=== PATIENT | male | born 1965 | race Caucasian/White ===

== ENCOUNTER 2016-09-22 05:35 | Day surgery (SDC) | payer BC ==
[2016-09-22] MEDS ORDERED: Dextrose 5%-0.45% NaCl 1,000 ML IV SCH (06:00)
[2016-09-22] MEDS ORDERED: Sodium Chloride 0.9% 10 ML Syringe FLUSH PRN (06:00)
[2016-09-22] MEDS ORDERED: Midazolam 1 MG/ML 2 ML SDV ONE (06:17)
[2016-09-22] MEDS ORDERED: fentaNYL 100 MCG/2 ML SDV ONE (06:17)
[2016-09-22] MEDS ORDERED: fentaNYL 100 MCG/2 ML SDV IV ONE ×3 (06:31→14:22)
[2016-09-22] MEDS ORDERED: Midazolam 1 MG/ML 2 ML SDV IV ONE ×3 (06:32→14:22)
--- NOTE | 2016-09-22 07:21 | OR ---
DATE: 09/22/2016 PROCEDURES: Esophagogastroduodenoscopy and multiple pinch biopsies. INSTRUMENT USED: GIF-H180 Olympus video panendoscope. PREMEDICATIONS: No oral topical anesthesia used. Fentanyl 100 mcg intravenous, Versed 2 mg intravenous, nasal 2 L O2 cannula. The procedure was done under pulse oximetry, BP recording, and quality assurance monitor. INDICATION: The patient with longstanding heartburn, dyspepsia, and upper abdominal pain had previous esophageal ulcers, treated by PPI in the past few months. Followup esophagogastroduodenoscopy is done for verification of the total healing of esophageal ulcers and for any evidence of Higgins's esophagus and/or malignancy, endoscopic hemostasis therapy if needed. DESCRIPTION OF PROCEDURE: The scope was passed with ease. Adequate visualization of the esophagus was made from proximal to distal areas. No upper esophageal lesions identified. No distal esophageal stricture. No uphill or downhill esophageal varices. No Marjorie-Donovan tear. No evidence of erosive esophagitis by [place] criteria. No esophageal polyp or tumor mass identified. Small sliding hiatal hernia was noted. [employer] columnar epithelium was noted at around 38 cm distal to the oral verge, small squamous island was noted in the area, 4 quadrant biopsies were taken and sent for any histopathologic evidence of intestinal metaplasia. No proximal gastric varices noted. Gastric fundus examination by retroflexion showed no polypoid lesions. No gastric ulcer, polyp, tumor mass, or vascular ectasia identified. Some patchy erythema was noted in the antrum. Duodenal bulb showed no ulcer. Visualized second part of the duodenum was unremarkable. Photographs were taken of the duodenal bulb, gastric antrum, fundus, and distal esophagus. No bleeding was noted from any of the visualized areas at the completion of examination. IMPRESSION: Small sliding hiatal hernia. The patient tolerated the procedure well. [facility] /[id number]
[2016-09-22 08:49] VITALS: BP 134/86
== END 2016-09-22 08:48 | disposition home or self-care (01) ==
LOC: DL.ENDO 05:35 → EDSTATUS 06:30 → DL.ENDO 08:48
PROVIDERS: ATTEND Internal Medicine Gastroenterology
DX: B33.20 Viral carditis, unspecified (principal); K44.9 Diaphragmatic hernia without obstruction or gangrene
CPT/HCPCS: 43239; J2250; J3010; J7042

== ENCOUNTER 2023-07-14 05:44 | Emergency (ER) | payer BC ==
[2023-07-14] MEDS ORDERED: Aspirin 81 MG Tab.Chew PO ONE (05:53)
[2023-07-14 06:02] LABS: BASOPHILS PERCENT AUTO 0.4 % (0.0-1.0); HEMATOCRIT 48.3 % (40.0-54.0); HEMOGLOBIN 17.3 g/dL (14.0-18.0); LYMPHOCYTES PERCENT AUTO 7.6 % (20.5-50.1); MEAN CORPUSCULAR HEMOGLOBIN 31.3 pg (27.0-34.0); MEAN CORPUSCULAR HGB CONC 35.8 g/dL (33.0-35.0); MEAN CORPUSCULAR VOLUME 87.3 fL (80-100); MONOCYTES PERCENT AUTO 3.9 % (2-8); NEUTROPHILS PERCENT AUTO 87.1 % (42.2-75.2); PLATELET COUNT,PLT 222 10^3/uL (150-450); RED BLOOD CELL COUNT 5.53 10^6/uL (4.6-6.2); WHITE BLOOD CELL COUNT,WBC 11.4 10^3/uL (5.0-10.0)
[2023-07-14 06:26] LABS: A/G RATIO 1.4; ALBUMIN 4.3 g/dL (3.4-5.0); ANION GAP 15.5 mEq/L (7-13); BILIRUBIN TOTAL 1.2 mg/dL (0.2-1.0); BUN/CREATININE RATIO 10.3 (No establ ref range); CALCIUM 9.1 mg/dL (8.5-10.1); CREATININE 1.46 mg/dL (0.70-1.30); EST CRCL DRUG DOSING (CG) 53.81 mL/min; MAGNESIUM 1.6 mg/dL (1.8-2.4); POTASSIUM,K 3.5 mmol/L (3.5-5.1); PROTEIN TOTAL,TP 7.4 g/dL (6.4-8.2)
[2023-07-14] MEDS ORDERED: Sodium Chloride 0.9% 1,000 ML IV ONE (06:29)
[2023-07-14 06:47] LABS: CORONAVIRUS COVID-19 NAA NEGATIVE (NEGATIVE); INFLUENZA A NAA NEGATIVE (NEGATIVE); INFLUENZA B NAA NEGATIVE (NEGATIVE)
[2023-07-14] MEDS ORDERED: GI Cocktail Oral Solution 30 ML PO ONE (06:58)
[2023-07-14] MEDS ORDERED: Acetaminophen 500 MG Tab PO ONE (07:09)
[2023-07-14 07:12] LABS: APPEARANCE,URINE CLEAR (CLEAR); BILIRUBIN,URINE NEGATIVE (NEGATIVE); COLOR,URINE YELLOW (YELLOW); GLUCOSE,URINE NEGATIVE (NEGATIVE); KETONES,URINE TRACE (NEGATIVE); LEUKOCYTE ESTERASE,URINE NEGATIVE (NEGATIVE); NITRITE,URINE NEGATIVE (NEGATIVE); OCCULT BLOOD,URINE NEGATIVE (NEGATIVE); PH,URINE 8.5 (5.0-9.0); PROTEIN,URINE 30 (NEGATIVE)
[2023-07-14 07:20] LABS: AMORPHOUS SEDIMENT,URINE RARE /HPF (NOT SEEN); BACTERIA,URINE RARE /HPF (0-FEW/HPF); EPITHELIAL CELLS,URINE NOT SEEN /HPF (NOT SEEN); MUCUS,URINE RARE /LPF (NOT SEEN); RBC,URINE 0-5 /HPF (0-5); WBC,URINE 0-5 /HPF (0-5/HPF)
[2023-07-14] MEDS ORDERED: Ondansetron 4 MG/2 ML SDV IVPUSH ONE (07:30)
[2023-07-14] MEDS ORDERED: Magnesium Sulfate/Water 2 GM in Premix Bag 1 BAG IV ONE (07:49)
[2023-07-14 09:15] VITALS: BP 132/77; PULSE 94
== END 2023-07-14 10:12 | disposition home or self-care (01) ==
LOC: DL.ED 05:44
DX: I45.81 Long QT syndrome (principal); R11.10 Vomiting, unspecified; K21.9 Gastro-esophageal reflux disease without esophagitis; E78.00 Pure hypercholesterolemia, unspecified; I10 Essential (primary) hypertension; E66.9 Obesity, unspecified; Z68.36 Body mass index [BMI] 36.0-36.9, adult; Z79.899 Other long term (current) drug therapy
CPT/HCPCS: 0240U; 36415; 71045; 80053; 81001; 83690; 83735; 84484; 85025; 85379; 93005; 93010; 96361; 96365; 96366; 96375; 99284; 99285-25; A9270-GY; J2405; J3475; J7030